=== PATIENT | female | born 1985 | race Caucasian/White ===

== ENCOUNTER 2017-04-05 08:23 | Day surgery (SDC) | payer BC ==
--- NOTE | 2017-03-22 08:17 | HP ---
PREOPERATIVE HISTORY AND PHYSICAL: DATE OF SURGERY: 04/05/17 DATE OF OFFICE VISIT: 03/21/17 ATTENDING SURGEON: Johnnie Silver MD * (DICTATED BY JENNIFER LANGE) PROCEDURE: Left hip arthroscopic labral repair with arthroscopic osteoplasty. CHIEF COMPLAINT: Left hip pain. HISTORY OF PRESENT ILLNESS: Maria Victoria is a 31-year-old female who presents to the clinic for followup of left hip pain due to a labral tear. She had good response to an injection immediately; however, the pain returned. She has failed conservative measures to include NSAIDs and physical therapy; therefore, has agreed to undergo a left hip arthroscopic labral repair with arthroscopic osteoplasty with Dr. Silver on 04/05/17. PAST MEDICAL HISTORY: Hypertension, discoid lupus, anxiety, and spondylitis. PAST SURGICAL HISTORY: Right knee ACL reconstruction, tonsillectomy and adenoidectomy. Denies prior complications with anesthesia. MEDICATIONS: 1. Lidoderm 5% one apply to affected area, 12 hours on and 12 hours off. 2. Meloxicam 15 mg one by mouth every day. 3. Sulfasalazine 500 mg take one by mouth twice a day. 4. Kariva 0.15-0.01 take one by mouth once daily as directed. 5. Metoprolol tartrate 25 mg one by mouth daily. 6. Magnesium 250 mg one by mouth daily. 7. Multivitamin Complete daily. 8. Paroxetine 40 mg one by mouth daily. 9. Probiotic one by mouth every day. 10. Gary-3, 1000 mg one by mouth daily. ALLERGIES: CODEINE. FAMILY HISTORY: Positive for cancer, hypertension, ulcerative colitis on the maternal side and cancer on the paternal side. Denies family history of DVT or PE. SOCIAL HISTORY: She lives with her family. 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 She denies smoking. She reports occasional alcohol consumption. She denies illegal drug use. REVIEW OF SYSTEMS: A 14-point review of systems was reviewed with the patient. Positive for current complaint, hypertension and intermittent GERD, otherwise negative. Denies history of chest pain, shortness of breath, history of bleeding disorder or history of DVT or PE. PHYSICAL EXAMINATION GENERAL: Well-developed, well-nourished 31-year-old female, in no acute distress. Alert and oriented x3. Appropriate mood and affect. VITAL SIGNS: Height 76, weight 180. Pulse 70, blood pressure 128/78, respiratory rate 18, temperature 98, BMI 27.4. HEENT: Normocephalic, atraumatic. PERRLA. Throat clear. NECK: Supple. PULMONARY: Lungs are clear to auscultation bilaterally. No wheezing, rhonchi, or rales. CARDIOVASCULAR: Regular rate and rhythm. S1 and S2. No murmurs, gallops, or rubs. No edema. ABDOMEN: Positive bowel sounds, soft, nontender. NEUROLOGIC: Alert and oriented x3. Cranial nerves grossly intact. Sensation intact to light touch. MUSCULOSKELETAL: Left hip, skin is intact, no warmth or erythema, nontender to palpation. Pain with deep flexion, flexion to 120 degrees, positive FADIR test , negative OTTO test. Pain with passive abduction of the hip. Internal rotation to about 25 degrees, external rotation to 40 degrees. No pain on logroll. Calf soft and nontender, +2 dorsalis pedis pulses. Sensation intact to light touch distally. STUDIES: MRI of the left hip revealed a subchondral cyst, a labral tear, and a Cam deformity. IMPRESSION: Left hip labral tear. PLAN: The patient is scheduled to undergo a left hip arthroscopic labral repair , arthroscopic osteoplasty with Dr. Silver on 04/05/17. She will return to us in 10- 14 days for postoperative followup and suture removal. Percocet and OxyContin will be used for postop pain management. Ambien for sleep and naproxen to prevent heterotopic ossification. JENNIFER LANGE [id number]/[facility] #: [id number] MTDD
[~2017-04-05 08:23] MED LIST: Buffered Lidocaine 0.9% SYRIN* 5 ML/SYR SYRINGE INTRADERM ONE
[2017-04-05] MEDS ORDERED: ceFAZolin 2 GM PREMIX (*) 50 ML IVPB ONE (08:32)
[2017-04-05] MEDS ORDERED: Buffered Lidocaine 0.9% SYRIN* 5 ML/SYR SYRINGE ONE (08:32)
[2017-04-05] MEDS ORDERED: Scopolamine 1.5 mg* PATCH ONE (09:09)
[2017-04-05] MEDS ORDERED: Ketorolac INJ* 30 MG/ML 1 ML VIAL ONE ×2 (09:09→11:51)
[2017-04-05] MEDS ORDERED: Bupivacaine 0.25% SDV* 30 ML ONE (09:09)
[2017-04-05] MEDS ORDERED: Midazolam* 1 MG/ML 2 ML VIAL (2 MG) ONE (09:17)
[2017-04-05] MEDS ORDERED: fentaNYL* 50 MCG/ML 2 ML VIAL (100 MCG VIAL) ONE ×3 (09:17→12:41)
[2017-04-05] MEDS ORDERED: Succinylcholine* 20 MG/ML 10 ML VIAL ONE (09:49)
[2017-04-05] MEDS ORDERED: Ondansetron INJ* 2 MG/ML VIAL ONE (09:49)
[2017-04-05] MEDS ORDERED: Dexamethasone IV* 4 MG/ML 1 ML (4 MG) ONE (09:49)
[2017-04-05] MEDS ORDERED: Lidocaine 2% PF * 5 ML VIAL ONE (09:49)
[2017-04-05] MEDS ORDERED: Propofol* 10 MG/ML 20 ML BTL IV PUSH ONE (09:49)
[2017-04-05] MEDS ORDERED: HYDROmorphone INJ* 1 MG/ML CARPUJECT SYRINGE IV PRN (10:32)
[2017-04-05] MEDS ORDERED: Metoclopramide IV* 5 MG/ML 2 ML VIAL IV PRN (10:32)
[2017-04-05] MEDS ORDERED: hydrALAZINE IV* 20 MG/ML VIAL ONE (11:54)
--- NOTE | 2017-04-05 12:13 | RAD ---
INDICATION: Left hip arthroscopic labral repair, M24.852 COMPARISONS: March 21, 2017 TECHNIQUE: Fluoroscopy was provided for a surgical procedure. Total fluoroscopy time is: 69 seconds FINDINGS: A single spot image demonstrates a needle overlying the left hip IMPRESSION: FLUOROSCOPY WAS PROVIDED FOR A SURGICAL PROCEDURE CPT II Codes: 6045F
[2017-04-05] MEDS: fentaNYL* 50 MCG/ML 2 ML VIAL (100 MCG VIAL) IV PRN ×4 (12:42→12:57)
[2017-04-05] MEDS ORDERED: oxyCODONE/Acetamin 5/325 MG* TAB ONE ×2 (12:51)
[2017-04-05 14:12] VITALS: BP 102/53
--- NOTE | 2017-04-09 07:26 | OP ---
CC: PCP OPERATIVE REPORT: DATE OF OPERATION: 04/05/17 DATE OF : 83 SURGEON: Johnnie Silver MD WASHER AND CRUSHER TENDER: JENNIFER Giles An assistant plant control operator was needed for the entirety of the case to help positioning, retraction, and was utilized throughout all portions of the case. ANESTHESIOLOGIST: Sabrina Stephens MD PRE-OP DIAGNOSIS: Left hip labral tear with pincer deformity and cam impingement. POST-OP DIAGNOSIS: Left hip labral tear with pincer deformity and cam impingement. OPERATIVE PROCEDURE: Left hip arthroscopy with: 1. Acetabular osteoplasty with labral repair. 2. Cam osteoplasty. INDICATIONS: Maria Victoria Garcia is a 31-year-old female, who has had bilateral hip pain. She has catching and popping in the hip as well as sharp pain. She was initially checked for rheumatoid arthritis and other autoimmune disorders but she was diagnosed with labral tears and small cam deformity. We confirmed her diagnosis. She responded well to an injection and tried extensive course of physical therapy prior to anticipating or considering surgery. We discussed risks and benefits of surgery. Risks include but are not limited to bleeding, infection, wound nonhealing, persistent pain, need for surgery, heterotopic ossification, damage to nerves, vessels, surrounding structures including lateral femoral cutaneous nerve as well as the perineal nerves and sciatic nerve , risk of DVT, risk of anesthesia, incomplete relief of symptoms, need for further surgery, scarring, stiffness, incomplete relief of pain. COMPLICATIONS: None. ESTIMATED BLOOD LOSS: Minimal. TRACTION TIME: 1 hour and 10 minutes. IMPLANTS: Two Rivas and Nephew Q-Fix anchors. OPERATIVE FINDINGS: Traction provided good access to the hip joint without evidence of hyperlaxity. The arthroscopic exam showed a large labral tear from 10 o'clock to 2 o'clock position with subluxation to the labrum that was okay quality. There was an evidence of a previous labral tear directly superiorly that had rounded up edges with unstable flap that is flapping in and out that was not repairable. There is a wave sign above the cartilage delamination at the area of the labral tear with minimum amount of damage to the acetabular cartilage. Cartilage of the femoral head had minimal wear and there was evidence of capsular irritation and there was [id number] pincer deformity. DESCRIPTION OF PROCEDURE: The patient was greeted in the preoperative area by the attending surgeon. Correct extremity was marked and consent was confirmed. The patient was then brought back to the operating suite where she was placed in supine position on the operating table. She then underwent general anesthesia endotracheal intubation. She was placed in Rivas and Nephew hip distraction system with well-padded perineal post. She was also placed in well- padded boot. Gross traction was then applied to the lower extremity in the dome of the pelvis. The operative leg was then placed in dynamic leg ramon with neutral adduction, slight flexion, gentle internal rotation to bring the femoral neck parallel to the floor. The lead was placed around the patient to prevent exposure to radiation. C-arm was used to confirm the alignment. A brief surgical pause was then done indicating side, site, procedure, and then gross traction was applied to the operative extremity. Under sterile condition , an 18-gauge spinal needle was used to introduce the joint to break the acetabular seal. Once this was done, fine traction was applied to the joint until it was distracted to about 1.5 cm. This was visualized and confirmed using large C-arm fluoroscopy. Traction was then released. The hip was then prepped and draped in the usual sterile fashion beginning with chlorhexidine soap, scrub, and alcohol wipe and a final prep with ChloraPrep. After appropriate surgical pause indicating side, site, procedure, and administration of antibiotics, traction was brought back up to allow for about 1.5 cm of distal traction. The anterior peritrochanteric portal was then accessed using a long spinal needle, which was confirmed fluoroscopically. The nitinol wire was then used to help facilitate the access into the joint atraumatically. Small incision was made and the scope was positioned. Once this was done, the mid anterior portal was made in similar fashion using spinal needle for localization. The trocar was advanced into the joint. 70-degree scope was used to identify and visualize the hip including femoral head, which had minimal arthritic changes. A small flap was able to be moved into the joint. There was pincer deformity present. There was a small area of ossified labrum that was previously ruptured that was flapping in and out. This was directly superior and it was appeared to be the stump of labrum, very inflamed and unrepairable. Arthroscope was switched between portals to make sure no portal was penetrating the labrum. Irrigation pump was set to 40 mmHg to provide constant pressure throughout the entirety of the case. Once the positions were confirmed, the capsulotomy was then done of the hip capsule using a [place] blade. The compartment synovectomy was carried out using full radius curved shaver as well as electrocautery device to maintain hemostasis. This eliminates synovial fold that was notable to allow access to the joint capsule but capsular reflection was then cleared back and the rim of acetabulum was exposed to allow for rim trimming, which was done using arthroscopic guidance. At this point, it was determined that the very superior piece that had small unstable stump was completely removed and excised using biters and benny, but there were small areas of labrum that still attached in a diminutive fashion but able to be repaired. The labrum was carefully detached and biters and benny were used to debride back the cartilage layer and a rim trimming was done using a 5- mm round bur beginning superolateral and extending anteriorly. This was confirmed with C-arm to help remove the crossover sign as well as mild AIIS bony impingement above the subspine region. This was determined by preoperative templating. All loose fluid and debris was removed and attention was directed to the remainder of the labrum. At this point, the decision was made to proceed with repair. We begun superolaterally. First anchor was placed with arthroscopic as well as fluoroscopic guidance to make sure that there was no penetration into the joint. The Q-Fix was deployed with excellent purchase. The sutures were passed through the labrum and secured in a simple fashion using arthroscopic knot tying technique to be outside of the joint. A second anchor was placed more anteriorly and passed in a similar fashion, which helped to restore and repair the labrum back. Once the labrum had been repaired and the pincer deformity was removed, the traction was released for a total time of 1 hour and 10 minutes. This was confirmed with C-arm as well as arthroscopically that the head was reduced from the joint and concentric reduction was confirmed. The femoral head and neck were then visualized and exposed as mild cam lesion. Preoperative templating was then used as a guide and femoral neck osteoplasty was carried out using a 5.5 round bur. Dissection was carried out from superolateral, inferomedial, and was carefully monitored and confirmed using C- arm to make sure elimination of any femoral-sided impingement. Femoral head and neck angle was then normalized. Care was taken to prevent iatrogenic injury to the lateral vessels post resection. Dynamic testing was done under direct visualization. C-arm was used to ensure that all bony impingement was removed. The hip was taken through range of motion. Resection was then done, extension, flexion, internal, external rotation as well as neutral rotation. Final dynamic exam was done to make sure the cam lesion to be eliminated. At this point, meticulous hemostasis was obtained. The spinal needle was inserted into the joint under arthroscopic visualization. 3 mL of injectable saline and Toradol were injected into the hip joint. The skin incisions were closely irrigated and closed in layered fashion with 2-0 Vicryl and 3-0 nylon. Portals were injected with 0.25% Marcaine for postoperative pain control. Sterile dressings were applied as well as Cryo/Cuff and thigh-high RANI stockings in both extremities. She was awoken from anesthesia and transferred to PACU in stable condition. POSTOPERATIVE PLAN: She was discharged home same day. Given prescriptions for pain medication including long-acting pain medication and Percocet. She was also given Naprosyn 500 mg p.o. b.i.d. for 30 days. She was also given Ambien 10 mg for 5 days. She will start physical therapy on postop day 1. She will not be flexing her hip actively past 90 degrees for the first 2 weeks and then will be allowed 50% weightbearing using crutches for the first 2 weeks postop. I will see her back in 10 to 14 days with x-rays of the hip including a [place] lateral at 45 degrees. [id number]/[facility] #: [id number] MTDD
== END 2017-04-05 16:07 | disposition home or self-care (01) ==
LOC: OR 08:23
PROVIDERS: ATTEND Orthopaedic Surgery
DX: M24.852 Other specific joint derangements of left hip, not elsewhere classified (principal); I10 Essential (primary) hypertension; L93.0 Discoid lupus erythematosus; F41.9 Anxiety disorder, unspecified; M46.90 Unspecified inflammatory spondylopathy, site unspecified
CPT/HCPCS: 36415; 76001; 81025; 86703; A9270-GY; C1713; J0330; J0360; J0690; J1100; J1885; J2250; J2405; J2704; J3010